=== PATIENT | male | born 1965 | race Caucasian/White ===

== ENCOUNTER 2016-09-08 17:54 | Emergency (ER) | payer MEDICAID ==
[~2016-09-08] VITALS: Ht 172.7 cm; Wt 61.2 kg
[2016-09-08 17:57] VITALS: BP 139/83
== END 2016-09-08 18:29 | disposition home or self-care (01) ==
LOC: ER 17:56
DX: L50.9 Urticaria, unspecified (principal); F17.200 Nicotine dependence, unspecified, uncomplicated
CPT/HCPCS: 99283; A4606; Z7610

== ENCOUNTER 2021-06-23 20:26 | Emergency (ER) | payer MEDICAID ==
[~2021-06-23] VITALS: Ht 172.7 cm; Wt 63.5 kg
--- NOTE | 2021-06-23 20:39 | NUR ---
BIBS C/O RIGHT FOOT NUMBNESS RADIATING UP TO CALF X2 WEEKS DENIES ANY PAIN. NO DISCOLORATION NOTED. PATIENT ALERT AND ORIENTED X3. AMBULATORY WITH NON LABORED BREATHING.
[2021-06-23 22:06] VITALS: BP 124/83
--- NOTE | 2021-06-23 22:06 | NUR ---
Patient discharged to home in stable condition. Written and verbal after care instructions given. Patient verbalizes understanding of instruction.
== END 2021-06-23 22:07 | disposition home or self-care (01) ==
LOC: ER 20:39
DX: M54.16 Radiculopathy, lumbar region (principal); F17.200 Nicotine dependence, unspecified, uncomplicated; Z98.890 Other specified postprocedural states
CPT/HCPCS: 72131-TC

== ENCOUNTER 2024-06-06 21:36 | Emergency (ER) | payer MEDICAID, OTHER ==
[~2024-06-06] VITALS: Ht 175.3 cm; Wt 68.0 kg
[2024-06-06] MEDS ORDERED: methylPREDNISolone SOD SUCC 125 MG/2ML VIAL ONE (21:43)
[2024-06-06] MEDS: ALBUTEROL FS 2.5 MG/3 ML VIAL.NEB CONTNEB ONE (21:47)
[2024-06-06] MEDS: IPRATROPIUM NEB FS 0.5 MG/2.5 ML AMPUL.NEB NEB ONE (21:47)
[2024-06-06] MEDS ORDERED: ALBUTEROL FS 2.5 MG/3 ML VIAL.NEB ONE (21:47)
[2024-06-06] MEDS ORDERED: IPRATROPIUM NEB FS 0.5 MG/2.5 ML AMPUL.NEB ONE (21:47)
[2024-06-06] MEDS: IV NS 0.9% 1,000 ML IV ONE (21:49)
[2024-06-06] MEDS: methylPREDNISolone SOD SUCC 125 MG/2ML VIAL IV ONE (21:50)
[2024-06-06 21:51] VITALS: O2SAT 96
[2024-06-06 22:06] VITALS: O2SAT 98; O2SAT 99
[2024-06-06 22:07] VITALS: O2SAT 99
[2024-06-06 22:07] LABS: BASOPHILS # (AUTO) 0.1 K/uL (0.0-0.2); BASOPHILS % (AUTO) 1.1 % (0.0-2.0); EOSINOPHILS # (AUTO) 0.4 K/uL (0.0-0.7); EOSINOPHILS % (AUTO) 3.7 % (0.0-6.0); HEMATOCRIT 46 % (39-51); HEMOGLOBIN 15.6 g/dL (13.5-17.5); LYMPHOCYTES # (AUTO) 1.6 K/uL (0.8-4.8); LYMPHOCYTES % (AUTO) 16.7 % (20.0-44.0); MEAN CORPUSCULAR HEMOGLOBIN 32 PG (26.0-33.0); MEAN CORPUSCULAR HGB CONC 34 g/dl (31.0-36.0); MEAN CORPUSCULAR VOLUME 95 fL (80-96); MONOCYTES # (AUTO) 0.7 K/uL (0.1-1.30); MONOCYTES % (AUTO) 7.4 % (2.0-12.0); NEUTROPHILS # (AUTO) 6.9 K/uL (1.8-8.9); NEUTROPHILS % (AUTO) 71.1 % (43.0-81.0); PLATELET COUNT (AUTO) 231 K/uL (150-450); RED BLOOD CELL COUNT(AUTO) 4.82 MIL/uL (4.5-6.0); RED CELL DISTRIBUTION WIDTH 13.2 % (11.5-15.0); WHITE BLOOD COUNT (AUTO) 9.7 K/uL (4.3-11.0)
[2024-06-06 22:17] LABS: CALCIUM, SERUM 9.3 mg/dL (8.5-10.1); POTASSIUM 4.5 mmol/L (3.5-5.1)
[2024-06-06 22:22] VITALS: O2SAT 99
[2024-06-06] MEDS ORDERED: PRED50TA PO (22:57)
[2024-06-06] MEDS ORDERED: ALBU8.5H8 INH (22:57)
[2024-06-06] MEDS ORDERED: AZIT250T PO (22:57)
[2024-06-06 23:36] VITALS: BP 95/51; TEMP 97.7; O2SAT 94
== END 2024-06-06 23:36 | disposition home or self-care (01) ==
LOC: ER 21:39
DX: J44.1 Chronic obstructive pulmonary disease with (acute) exacerbation (principal); J06.9 Acute upper respiratory infection, unspecified; F17.200 Nicotine dependence, unspecified, uncomplicated; Z20.822 Contact with and (suspected) exposure to COVID-19
CPT/HCPCS: 99285; 96374; 71045; 96361; 87426; 93005; 87804 ×2; 85025; 80048; 36415; 94640 ×2; J2919

== ENCOUNTER 2024-12-09 15:46 | Emergency (ER) | payer OTHER ==
[~2024-12-09] VITALS: Ht 172.7 cm; Wt 59.0 kg
[~2024-12-09 15:46] MED LIST: ALBU8.5H8 INH; AZIT250T PO; PRED50TA PO
[2024-12-09 16:29] LABS: PLATELET COUNT (AUTO) 200 K/uL (150-450); RED BLOOD CELL COUNT(AUTO) 4.67 MIL/uL (4.5-6.0); RED CELL DISTRIBUTION WIDTH 13.6 % (11.5-15.0); WHITE BLOOD COUNT (AUTO) 5.7 K/uL (4.3-11.0)
[2024-12-09] MEDS: Magnesium 1GM/D5W 100ML PREMIX 200 ML IV ONE (16:30)
[2024-12-09] MEDS ORDERED: Magnesium 1GM/D5W 100ML PREMIX 100 ML IV ONE ×2 (16:33→18:07)
[2024-12-09] MEDS ORDERED: ALBUTEROL FS 2.5 MG/3 ML VIAL.NEB ONE (16:38)
[2024-12-09] MEDS ORDERED: IPRATROPIUM NEB FS 0.5 MG/2.5 ML AMPUL.NEB ONE (16:38)
[2024-12-09 16:39] LABS: CALCIUM, SERUM 9.0 mg/dL (8.5-10.1); CREATININE 1.1 mg/dL (0.6-1.3); SODIUM SERUM 141 mmol/L (136-145); UREA NITROGEN, BLOOD 19 mg/dL (7-18)
[2024-12-09] MEDS: IPRATROPIUM NEB FS 0.5 MG/2.5 ML AMPUL.NEB NEB ONE (16:45)
[2024-12-09] MEDS: ALBUTEROL FS 2.5 MG/3 ML VIAL.NEB NEB ONE (16:45)
[2024-12-09 16:46] VITALS: O2SAT 96
[2024-12-09 16:46] LABS: NT-PRO BNP 68 pg/mL (0-125)
[2024-12-09] MEDS ORDERED: IV NS 0.9% 250 ML IV ONE (17:13)
[2024-12-09] MEDS ORDERED: IOHEXOL-350 100 ML VIAL IV ONE (17:13)
[2024-12-09 17:34] VITALS: O2SAT 100
[2024-12-09] MEDS ORDERED: ALBU18HF2 INH (19:20)
[2024-12-09 19:30] VITALS: BP 122/81; TEMP 98.3; O2SAT 100
[2024-12-09] MEDS ORDERED: PRED50TA PO (20:38)
== END 2024-12-09 19:30 | disposition home or self-care (01) ==
LOC: ER 15:51
DX: R06.09 Other forms of dyspnea (principal); R79.89 Other specified abnormal findings of blood chemistry; F17.200 Nicotine dependence, unspecified, uncomplicated; J44.1 Chronic obstructive pulmonary disease with (acute) exacerbation; Z79.52 Long term (current) use of systemic steroids
CPT/HCPCS: 99285; 96365; 71275; 71045; 96366; 96375; 93005; 85025; 80048; 85378; 36415; 84484 ×2; 83880; 94644; J2919; J7050; A4223; J3475 ×2; Q9967